=== PATIENT | female | born 1975 ===

== ENCOUNTER 2022-03-29 19:20 | Inpatient (IN) | payer SELFPAY ==
[~2022-03-29] VITALS: Ht 180.3 cm; Wt 99.8 kg
[2022-03-29] VITALS (143 sets, daily range): BP systolic 102; BP diastolic 58; PULSE 90; TEMP 97.8; O2SAT 67–100
[2022-03-29] MEDS ORDERED: JANTOVEN1 MG PO (20:56)
[2022-03-29] MEDS ORDERED: CEPHALEXIN500 M1 PO (20:56)
[2022-03-29] MEDS ORDERED: LYRICA 75MG CAP75 MG PO (20:57)
[2022-03-29] MEDS ORDERED: PROVIGIL200 MG PO ×2 (20:57→20:58)
[2022-03-29] MEDS ORDERED: COLCRYS0.6 MG PO (20:57)
[2022-03-29] MEDS ORDERED: VITAMIN D250 MCG PO (20:58)
[2022-03-29] MEDS ORDERED: LANOXIN 0.120.125 MG PO (20:59)
[2022-03-29] MEDS ORDERED: NORVASC 5MG5 MG/TAB PO (21:22)
[2022-03-29] MEDS ORDERED: LIPITOR 40MG TA40 MG PO (21:22)
[2022-03-29] MEDS ORDERED: MAG-OX 400400 MG/TAB PO (21:23)
[2022-03-29] MEDS ORDERED: MIRAPEX 0.0.125 MG/T PO (21:24)
[2022-03-29] MEDS ORDERED: ZYLOPRIM 100MG100 MG PO (21:25)
[2022-03-29] MEDS ORDERED: PROTONIX 40MG T40 MG PO (21:26)
[2022-03-29] MEDS ORDERED: LEXAPRO20 MG PO (21:26)
[2022-03-29] MEDS ORDERED: K-TAB20 PO (21:28)
[2022-03-29] MEDS ORDERED: LOTENSIN HCT 201 TA1 PO (21:28)
[2022-03-29] MEDS ORDERED: LOPRESSOR100 MG PO (21:29)
[2022-03-29] MEDS ORDERED: LASIX 20MG TABL20 MG PO (21:29)
[2022-03-29 21:49] LABS: ARTERIAL BLD GAS O2 SATURATION 95.9 % (92-100); ARTERIAL BLD GAS TCO2 CT 8.2; ARTERIAL BLOOD GAS BASE EXCESS -17.9 (-2-2); ARTERIAL BLOOD GAS HCO3 7.6 meq/L (22-26); ARTERIAL BLOOD GAS pH 7.22 (7.35-7.45)
[2022-03-29 21:54] LABS: BASO # 0.1 K/mm3 (0.0-0.2); BASO % 0.4 % (0.0-2.0); EOS % 0.3 % (0.0-4.0); GRAN # 9.1 K/mm3 (1.4-6.5); GRAN % 77.8 % (42.2-75.2); HEMATOCRIT 37.1 % (37.0-47.0); HEMOGLOBIN 12.3 g/dl (12.5-16.0); LYMPH # 1.9 K/mm3 (1.2-3.4); LYMPH % 16.1 % (20.0-51.0); MEAN CELL VOLUME 94 fl (80.0-100.0); MEAN CORPUSCULAR HEMOGLOBIN 31 pg (27-31); MEAN CORPUSCULAR HGB CONC 33 g/dl (33.0-37.0); MEAN PLATELET VOLUME 11.8 fl (7.4-10.4); MONO # 0.6 K/mm3 (0.1-0.6); PLATELET COUNT 287 K/mm3 (130-400); RED BLOOD COUNT 3.97 M/mm3 (4.10-5.30); REDCELL DISTRIBUTION WIDTH-CV 14.6 % (11.5-14.5)
[2022-03-29 22:05] LABS: INR 2.2 (0.8-3.0); PROTHROMBIN TIME 25.6 SECONDS (9.7-12.8)
[2022-03-29 22:23] LABS: ALANINE AMINOTRANSFERASE 8 U/L (0-55); ALBUMIN 3.1 gm/dL (3.5-5.0); ALKALINE PHOSPHATASE 101 U/L (40-150); ANION GAP 22 mmol/L (7-16); AST,SGOT 8 U/L (5-34); BILIRUBIN,TOTAL 0.4 mg/dL (0.2-1.2); CALCIUM 9.5 mg/dL (8.4-10.2); CHLORIDE 105 mmol/L (98-107); CREATINE KINASE 35 U/L (29-168); GLUCOSE 76 mg/dL (70-99); MAGNESIUM 1.9 mg/dL (1.6-2.6); PHOSPHOROUS 9.1 mg/dL (2.3-4.7); POTASSIUM 5.4 mmol/L (3.5-4.5); SODIUM 135 mmol/L (136-145); TOTAL PROTEIN 7.6 gm/dL (6.2-8.1)
[2022-03-29 22:24] LABS: ALCOHOL(ethanol),MEDICAL < 10 mg/dL (0-10); SALICYLATE < 5.0 mg/dL (15.0-30.0)
[2022-03-29 22:27] LABS: CARBON DIOXIDE 8 mmol/L (22-29)
[2022-03-29 22:36] LABS: TROPONIN-I 0.022 ng/mL (0.00-0.033); TSH w REFLEX 1.041 uIU/mL (0.350-4.940)
[2022-03-29 22:37] LABS: BLOOD UREA NITROGEN 127 mg/dL (7-19)
[2022-03-29 22:41] LABS: COLLECTION METHOD CLEAN CATCH
[2022-03-29 22:49] LABS: MUCOUS Present (NOT PRESENT); SQUAMOUS EPITHELIAL None Seen /hpf (0-10); URINE BACTERIA Rare /hpf (NONE SEEN)
[2022-03-29 22:50] LABS: URINE APPEARANCE Clear (CLEAR/HAZY); URINE BLOOD 1+ (NEGATIVE); URINE COLOR Yellow (YELLOW); URINE GLUCOSE Negative (NEGATIVE); URINE KETONE Negative (NEGATIVE); URINE NITRATE Negative (NEGATIVE); URINE PROTEIN(semi-quant) 1+ (NEGATIVE); URINE UROBILINOGEN 0.2 E.U/dL (0.2-1.0)
[2022-03-29 23:03] LABS: TRICYCLIC ANTIDEPRESS URINE NEGATIVE
[2022-03-30] VITALS (1102 sets, daily range): BP systolic 102–118; BP diastolic 53–73; PULSE 70–85; TEMP 97.6–98.3; O2SAT 69–100
[2022-03-30 00:40] LABS: ANION GAP 20 mmol/L (7-16); CALCIUM 8.9 mg/dL (8.4-10.2); CHLORIDE 108 mmol/L (98-107); CREATININE, serum 6.88 mg/dL (0.57-1.11); GLUCOSE 75 mg/dL (70-99); POTASSIUM 5.2 mmol/L (3.5-4.5); SODIUM 136 mmol/L (136-145)
[2022-03-30 00:43] LABS: BLOOD UREA NITROGEN > 125 mg/dL (7-19)
[2022-03-30 00:50] LABS: CARBON DIOXIDE 8 mmol/L (22-29)
[2022-03-30 04:53] LABS: BASO % 0.3 % (0.0-2.0); EOS % 0.2 % (0.0-4.0); HEMOGLOBIN 10.7 g/dl (12.5-16.0); LYMPH # 2.2 K/mm3 (1.2-3.4); LYMPH % 22.7 % (20.0-51.0); MEAN CELL VOLUME 91 fl (80.0-100.0); MEAN CORPUSCULAR HEMOGLOBIN 31 pg (27-31); MEAN CORPUSCULAR HGB CONC 34 g/dl (33.0-37.0); MEAN PLATELET VOLUME 11.3 fl (7.4-10.4); MONO # 0.5 K/mm3 (0.1-0.6); MONO % 5.4 % (1.7-9.3); PLATELET COUNT 268 K/mm3 (130-400); RED BLOOD COUNT 3.43 M/mm3 (4.10-5.30); REDCELL DISTRIBUTION WIDTH-CV 14.4 % (11.5-14.5)
[2022-03-30 05:03] LABS: HEMATOCRIT 31.3 % (37.0-47.0)
[2022-03-30 05:08] LABS: INR 2.4 (0.8-3.0); PROTHROMBIN TIME 27.5 SECONDS (9.7-12.8)
--- NOTE | 2022-03-30 05:09 | NUR ---
46 yo female admitted for further care and management of acute on chronic renal failure and additional concerns for severe sepsis of unclear etiology. ht 180.3 cm wt 96.8 kg SCr 6.88 Plan: Patient will not follow population based kinetics secondary to significant renal dysfunction. Patient received a single pulse dose of vancomycin 2000 mg upon admission (20.7 mg/kg). Will not schedule a maintenance regimen at this time. Will follow patient's renal function, possible need for dialysis, micro data, and vancomycin levels as indicated to assess for future timing of subsequent doses of vancomycin. Thank you for this dosing consult.
[2022-03-30 05:13] LABS: ALBUMIN 2.8 gm/dL (3.5-5.0); CALCIUM 8.9 mg/dL (8.4-10.2); CREATININE, serum 5.23 mg/dL (0.57-1.11); POTASSIUM 4.2 mmol/L (3.5-4.5); TOTAL PROTEIN 6.6 gm/dL (6.2-8.1)
[2022-03-30 05:27] LABS: BILIRUBIN,TOTAL 0.5 mg/dL (0.2-1.2)
--- NOTE | 2022-03-30 10:25 | NUR ---
Patient's heart rate noted to be ranging 100-140 in A-fib. Has been in A-fib but was previously rate controlled. Notified Dr. Wheeler. WIll give one time dose of home dose of digoxin. Will monitor for effectiveness.
--- NOTE | 2022-03-30 12:12 | NUR ---
SW met with patient to complete intake. Patient states that she lives alone at [facility] in [place]. Patient provides that she does not have next of kin, nor close friends to mention or document. Patient states that she does not utilize DME, is independent with ADL's and thompson not recieve HH. Patient states her PCP is Dr. Romeo, and pharmacy at the location where she stays she states. Patient states that she does not have anyone appointed as DPOA of HC and does not wish to appoint anyone at this time. Patient states that she plans to return to her home in [place] upon DC. SW will continue to follow. DC plan: Home
--- NOTE | 2022-03-30 12:30 | NUR ---
Sales Operations Specialist rounds: Patient was sleeping. Sales Operations Specialist prayed silently in Patient's room.
--- NOTE | 2022-03-30 14:54 | NUR ---
Updated patient's mother via telephone of current status. All questions and concerns addressed at this time.
--- NOTE | 2022-03-30 16:55 | NUR ---
Resting in bed; reports tylenol was effective for "body aches". Assisted with respositioning and sonali-care.
[2022-03-31] VITALS (978 sets, daily range): BP systolic 102–126; BP diastolic 64–88; PULSE 64–110; TEMP 97.7–98.7; O2SAT 83–100
[2022-03-31 05:21] LABS: BASO % 0.5 % (0.0-2.0); EOS # 0.1 K/mm3 (0.0-0.7); EOS % 1.8 % (0.0-4.0); GRAN # 3.8 K/mm3 (1.4-6.5); GRAN % 52.6 % (42.2-75.2); HEMOGLOBIN 10.4 g/dl (12.5-16.0); LYMPH # 2.7 K/mm3 (1.2-3.4); LYMPH % 37.6 % (20.0-51.0); MEAN CELL VOLUME 93 fl (80.0-100.0); MEAN CORPUSCULAR HEMOGLOBIN 31 pg (27-31); MEAN CORPUSCULAR HGB CONC 33 g/dl (33.0-37.0); MONO # 0.5 K/mm3 (0.1-0.6); MONO % 7.1 % (1.7-9.3); PLATELET COUNT 246 K/mm3 (130-400); RED BLOOD COUNT 3.37 M/mm3 (4.10-5.30); REDCELL DISTRIBUTION WIDTH-CV 14.2 % (11.5-14.5)
[2022-03-31 05:22] LABS: HEMATOCRIT 31.2 % (37.0-47.0)
[2022-03-31 05:38] LABS: ALBUMIN 2.6 gm/dL (3.5-5.0); BILIRUBIN,TOTAL 1.1 mg/dL (0.2-1.2); CALCIUM 8.5 mg/dL (8.4-10.2); CREATININE, serum 1.41 mg/dL (0.57-1.11); PHOSPHOROUS 2.5 mg/dL (2.3-4.7); POTASSIUM 3.2 mmol/L (3.5-4.5); TOTAL PROTEIN 6.2 gm/dL (6.2-8.1)
[2022-03-31 05:40] LABS: INR 1.9 (0.8-3.0); PROTHROMBIN TIME 22.4 SECONDS (9.7-12.8)
--- NOTE | 2022-03-31 12:45 | NUR ---
SON IN LAW BEDSIDE
--- NOTE | 2022-03-31 14:23 | NUR ---
PT HAS HAD A DECLINE IN ORIENTATION.
[2022-03-31 14:35] LABS: CALCIUM 8.6 mg/dL (8.4-10.2); CREATININE, serum 1.01 mg/dL (0.57-1.11); POTASSIUM 3.7 mmol/L (3.5-4.5)
--- NOTE | 2022-03-31 17:06 | NUR ---
REPORT GIVEN TO JOSSUE GRAF RN. PT TRANSPORTED VIA WHEELCHAIR WITH ALL BELONGINGS.
--- NOTE | 2022-03-31 17:45 | NUR ---
PATIENT ARIVED FROM ICU IN [facility]. VITALS STABLE. IV FLUIDS INFUSING. RIJ PATENT. PATIENT AWAKE AND ALERT. CALL LIGHT WITHIN REACH. CONTACT PRECAUTIONS IN PLACE.
[2022-04-01 03:07] VITALS: BP 125/65; PULSE 97; TEMP 97.7
[2022-04-01 06:17] LABS: BASO % 0.5 % (0.0-2.0); EOS # 0.2 K/mm3 (0.0-0.7); EOS % 3.1 % (0.0-4.0); GRAN # 3.5 K/mm3 (1.4-6.5); GRAN % 48.1 % (42.2-75.2); HEMOGLOBIN 10.2 g/dl (12.5-16.0); LYMPH % 40.6 % (20.0-51.0); MEAN CELL VOLUME 94 fl (80.0-100.0); MEAN CORPUSCULAR HEMOGLOBIN 31 pg (27-31); MEAN CORPUSCULAR HGB CONC 33 g/dl (33.0-37.0); MEAN PLATELET VOLUME 10.9 fl (7.4-10.4); MONO # 0.5 K/mm3 (0.1-0.6); MONO % 7.2 % (1.7-9.3); PLATELET COUNT 218 K/mm3 (130-400); RED BLOOD COUNT 3.28 M/mm3 (4.10-5.30); REDCELL DISTRIBUTION WIDTH-CV 14.1 % (11.5-14.5)
[2022-04-01 06:21] LABS: INR 1.5 (0.8-3.0); PROTHROMBIN TIME 17.3 SECONDS (9.7-12.8)
[2022-04-01 06:30] LABS: ALBUMIN 2.5 gm/dL (3.5-5.0); BILIRUBIN,TOTAL 0.9 mg/dL (0.2-1.2); CALCIUM 8.3 mg/dL (8.4-10.2); CREATININE, serum 0.79 mg/dL (0.57-1.11); MAGNESIUM 1.6 mg/dL (1.6-2.6); PHOSPHOROUS 1.7 mg/dL (2.3-4.7); TOTAL PROTEIN 5.8 gm/dL (6.2-8.1)
[2022-04-01 06:34] LABS: HEMATOCRIT 30.7 % (37.0-47.0)
[2022-04-01 07:49] VITALS: BP 116/60; PULSE 62; TEMP 97.5
[2022-04-01] MEDS ORDERED: LOPRESSOR 550 MG/TAB PO (08:51)
[2022-04-01] MEDS ORDERED: CEFTIN 250250 MG/TAB PO (08:53)
--- NOTE | 2022-04-01 09:58 | NUR ---
geotechnical engineering technician called stating pt's hr in 180's, shivani gomes notified and ordered ekg and start home beta dorys
--- NOTE | 2022-04-01 10:01 | NUR ---
rt notified of new ekg order
[2022-04-01 12:00] VITALS: BP 123/76; PULSE 61; TEMP 98.1
--- NOTE | 2022-04-01 13:56 | NUR ---
Global [employer] attended clinical rounds with the team and patient to discharge home today. SW met with patient to establish ride home. Patient stated she needs help with this and requested SW call her mother, Kaylah (ph#[phone]). SW contacted Kaylah who advised the best person to call would be patient's daughter, Eder (ph#[phone]). Kaylah did comment that she was concerned about patient returning home today as they don't have someone coming out to clean the home until next week. Per notes, patient was found at home during a welfare check covered in diarrhea. MANPREET contacted Eder who advised she lives in [place] and could leave around 1600 to come to [place] to pick remover patient. Eder advised patient does not take good care of herself and "dabbles" with methamphetamines. Eder advised patient doesn't drink water, only Pepsi and also does not keep her apartment clean. Eder advised this is patient's fourth hospital stay in six months. MANPREET provided support to Eder who expressed it has been difficult trying to help her mom take better care of herself. MANPREET contacted patient's primary care office in [place] and scheduled a follow up with Dr. Milligan for 04/09/22 at 0900. MANPREET provided appointment to mental health unit lead psychologist to include in discharge. MANPREET also made report to Adult Protective Services. Discharge Plan: Home
[2022-04-01 15:28] VITALS: BP 116/75; PULSE 77; TEMP 98.1
== END 2022-04-01 19:20 | disposition home health service (06) | DRG 871 ==
LOC: ICU 19:20 → MEDICAL 03-31 18:11
PROVIDERS: Nurse Practitioner Family; ADMIT Hospitalist
PROC: 02HV33Z Insertion of Infusion Device into Superior Vena Cava, Percutaneous Approach (ICD-10-PCS; principal; 2022-03-29)
DX: A41.9 Sepsis, unspecified organism (principal); G93.41 Metabolic encephalopathy; R57.1 Hypovolemic shock; R65.21 Severe sepsis with septic shock; N17.9 Acute kidney failure, unspecified; E87.1 Hypo-osmolality and hyponatremia; E87.20 Acidosis, unspecified; Z66 Do not resuscitate; N39.0 Urinary tract infection, site not specified; F15.10 Other stimulant abuse, uncomplicated; E86.1 Hypovolemia; E87.5 Hyperkalemia; N18.9 Chronic kidney disease, unspecified; M06.9 Rheumatoid arthritis, unspecified; E78.5 Hyperlipidemia, unspecified; G89.29 Other chronic pain; M54.9 Dorsalgia, unspecified; G25.81 Restless legs syndrome; I12.9 Hypertensive chronic kidney disease with stage 1 through stage 4 chronic kidney disease, or unspecified chronic kidney disease; M10.9 Gout, unspecified; K21.9 Gastro-esophageal reflux disease without esophagitis; E83.42 Hypomagnesemia; G62.9 Polyneuropathy, unspecified; K59.00 Constipation, unspecified; I95.9 Hypotension, unspecified; I48.91 Unspecified atrial fibrillation; F17.210 Nicotine dependence, cigarettes, uncomplicated; E87.8 Other disorders of electrolyte and fluid balance, not elsewhere classified; F32.A Depression, unspecified; E83.39 Other disorders of phosphorus metabolism; E86.0 Dehydration; S80.211A Abrasion, right knee, initial encounter; W18.39XA Other fall on same level, initial encounter; Y93.89 Activity, other specified; Z88.2 Allergy status to sulfonamides; Z79.01 Long term (current) use of anticoagulants; Z88.8 Allergy status to other drugs, medicaments and biological substances; Z86.73 Personal history of transient ischemic attack (TIA), and cerebral infarction without residual deficits; Y92.89 Other specified places as the place of occurrence of the external cause; Z95.0 Presence of cardiac pacemaker; Z23 Encounter for immunization
CPT/HCPCS: A9270; J2185; J3370; J3475; J3480; J7030; J7040; J7070